=== PATIENT | male | born 1950 | race African-American/Black ===

== ENCOUNTER 2020-10-02 09:59 | Outpatient (REF) | payer SELFPAY | END 2020-10-02 10:00 | disposition home or self-care (01) | LOC: HO.SCI 09:59 | PROVIDERS: Visit Provider Internal Medicine | DX: Z13.89 Encounter for screening for other disorder (principal) ==

== ENCOUNTER 2020-10-17 08:18 | Outpatient (REF) | payer BC, SELFPAY ==
--- NOTE | ~2020-10-17 | US_ITS ---
EXAMINATION: US RETROPERITONEAL LIMITED (RENAL ONLY) CLINICAL INFORMATION: Chronic kidney disease, stage 3. COMPARISON: None TECHNIQUE: Real-time imaging of the kidneys. FINDINGS: RIGHT KIDNEY: 9.1 x 5.4 x 5.6 cm (SAG x AP x TRV). The kidney is normal in size, contour, and echogenicity. Renal cortical thickness is normal. No calculi or focal parenchymal lesions. No hydronephrosis. LEFT KIDNEY: 9.3 x 4.4 x 4.7 cm (SAG x AP x TRV). The kidney is normal in size, contour, and echogenicity. Renal cortical thickness is normal. No calculi or focal parenchymal lesions. No hydronephrosis. US/US renal BI IMPRESSION: Normal renal ultrasound.
== END 2020-10-17 08:19 | disposition home or self-care (01) ==
LOC: HO.US 08:18
PROVIDERS: PCP Internal Medicine; Visit Provider Internal Medicine
DX: N18.30 Chronic kidney disease, stage 3 unspecified (principal)
CPT/HCPCS: 76775

== ENCOUNTER 2022-12-06 15:50 | Outpatient (REF) | payer BC, SELFPAY ==
[2022-12-07 02:23] LABS: Vitamin B12 1275 pg/mL (200-900)
[2022-12-07 02:25] LABS: Anion Gap 11 (12-20); Blood Urea Nitrogen 46 mg/dL (9-16); Calcium 10.6 mg/dL (8.4-10.2); Carbon Dioxide 28 mmol/L (22-29); Chloride 104 mmol/L (96-108); Estimated Glomerular Filt Rate 23; Glucose Random 333 mg/dL (60-115); Potassium 4.8 mmol/L (3.3-5.1); Sodium 138 mmol/L (135-145); TSH reflex Free T4 0.77 uIU/mL (0.32-4.0)
[2022-12-07 04:31] LABS: Syphilis Screen Nonreactive (Nonreactive)
== END 2022-12-06 15:51 | disposition home or self-care (01) ==
LOC: HO.CHCLDS 15:50
PROVIDERS: Visit Provider Internal Medicine
DX: R41.3 Other amnesia (principal)
CPT/HCPCS: 36415; 80048; 82607; 84443; 86780